=== PATIENT | female | born 1940 | race Caucasian/White ===

== ENCOUNTER 2016-10-24 13:20 | Inpatient (IN) | payer OTHER, MEDICARE ==
[~2016-10-24] VITALS: Ht 172.7 cm; Wt 103.9 kg
[~2016-10-24 13:20] MED LIST: ASPI81TA11 PO; ATOR10 PO; AUGM500T7 PO; CARV12.5 PO; COZA50TA PO; FURO40TA PO; LEVEMIR SQ; LISI10 PO; NOVOLOGP2 SQ
--- NOTE | 2016-10-24 13:29 | PD ---
HPI . right hip/buttocks pain s/p fall Chief Complaint: right hip/buttocks pain s/p fall Time Seen by Provider: 13:29 Travel History International Travel<30 days: No Contact w/Intl Traveler<30days: No Traveled to known affect area: No History of Present Illness HPI 75-year-old female with past medical history significant for hypertension, hyperlipidemia, CHF and diabetes who takes warfarin for a supposedly clotted her heart here status post fall grocery store now with complaints of right hip and buttocks pain. Patient says she was getting ready to step up a curb, instead of looking where she was walking she was looking straight ahead at her car. She lost balance and fell down to her right buttocks and hip. She tells me that her cell phone with her pocket and she thinks that may have caused her to have some muscle strain. She was afraid to get up and try to walk, because it seemed to be a little bit more painful with trying to bear weight. Paramedics were called and brought her to the emergency department for further evaluation. This present time she is telling me she has 2/10 pain in her right hip at rest, however when she tries to ambulate she says the pain intensifies to 8/10. She denies any head injury or loss of consciousness. She has no other complaints of pain. Her blood pressures elevated today, and she tells me that she did not take her medications at home. She denies any nausea, vomiting , diaphoresis, shortness breath, chest pain, or syncope. PFSH Past Medical History Heart Rhythm Problems: No Cancer: No Cardiovascular Problems: Yes High Cholesterol: Yes Chest Pain: No Congestive Heart Failure: Yes Diabetes: Yes Diminished Hearing: No Endocrine: No Genitourinary: No Hypertension: Yes Immune Disorder: No Implanted Vascular Access Dvce: No Musculoskeletal: No Neurologic: No Psychiatric: No Reproductive: No Respiratory: Yes Myocardial Infarction: Yes (NSTEMI) Menopausal: Yes Past Surgical History Cardiac Surgery: Yes (CARDIAC CATHETERIZATION) Other Surgery: No Social History Alcohol Use: No Tobacco Use: No Substance Use: No Allergies-Medications (Allergen,Severity, Reaction): Coded Allergies: No Known Allergies (Unverified , 10/24/16) Reported Meds & Prescriptions Reported Meds & Active Scripts Active Novolog (Insulin Aspart) 100 Units/Ml Inj 5 Units SQ TIDAC 30 Days Coreg 12.5 mg (Carvedilol) 12.5 Mg Tab 12.5 Mg PO Q12 30 Days Aspirin EC 81 mg (Aspirin) 81 Mg Tab 81 Mg PO DAILY 30 Days Prinivil 10 mg (Lisinopril) 10 Mg Tab 40 Mg PO DAILY 30 Days Lipitor 10 mg tab (Atorvastatin) 10 Mg Tab 10 Mg PO HS 30 Days Reported Glipizide-Metformin 2-250 Mg Tab Losartan (Losartan Potassium) 50 Mg Tab 50 Mg PO DAILY Lisinopril 40 Mg Tab 40 Mg PO DAILY Furosemide 40 Mg Tab 40 Mg PO DAILY Carvedilol 12.5 Mg Tab 12.5 Mg PO BID Atorvastatin (Atorvastatin Calcium) 10 Mg Tab 10 Mg PO HS Aspirin 81 Mg Chew 81 Mg CHEW DAILY Cozaar (Losartan Potassium) 50 Mg Tab 50 Mg PO DAILY Furosemide 40 Mg Tab 40 Mg PO DAILY Levemir Insulin (Insulin Detemir) 100 Units/Ml Inj 25 Units SQ HS Review of Systems General / Constitutional: No: Fever Eyes: No: Visual changes HENT: No: Headaches Cardiovascular: No: Chest Pain or Discomfort Respiratory: No: Shortness of Breath Gastrointestinal: No: Abdominal Pain Genitourinary: No: Dysuria Musculoskeletal: Positive: Pain (right hip pain ) Skin: No Rash Neurologic: No: Weakness Psychiatric: No: Depression Endocrine: No: Polydipsia Hematologic/Lymphatic: No: Easy Bruising Physical Exam Narrative GENERAL: AAO x 3, no acute distress, Well-nourished, well-developed patient. obese SKIN: Warm and dry. No visible rashes or bruising. no ecchymosis of hips HEAD: Normocephalic and atraumatic. EYES: No scleral icterus. No injection or drainage. EOM intact, ENT: No nasal drainage noted. Mucous membranes pink. Airway patent. NECK: Supple, trachea midline. No JVD. non tender CARDIOVASCULAR: Regular rate and rhythm without murmurs, gallops, or rubs. RESPIRATORY: Breath sounds equal bilaterally. No accessory muscle use. No rhonchi or rales. GASTROINTESTINAL: Abdomen soft, non-tender, nondistended. no rebound or guarding EXTREMITIES: No cyanosis or edema. Right leg ROM normal, but limited due to pain in the right hip. right knee flexes and extends normally. BACK: Nontender without obvious deformity. No CVA tenderness. NEURO: CN II-12 intact, polygraph examiner strength normal b/l, UE and LE 5/5, no focal deficits PSYCH: AAO x 3, normal affect. Data Data Last Documented VS Vital Signs Date Time Temp Pulse Resp B/P Pulse Ox O2 Delivery O2 Flow Rate FiO2 10/24/16 13:41 98.0 84 16 180/101 96 Room Air Orders Femur (Ap & Lat/2vws) (10/24/16 13:36) Hip, Uni(Ap&Lat) W Ap Pelvis (10/24/16 13:36) Ct Pelvis W/O Iv Contrast (10/24/16 ) Complete Blood Count With Diff (10/24/16 15:01) Basic Metabolic Panel (Bmp) (10/24/16 15:01) Prothrombin Time / Inr (Pt) (10/24/16 15:01) Act Partial Throm Time (Ptt) (10/24/16 15:01) Chest, Single Ap (10/24/16 ) Electrocardiogram (10/24/16 ) Consult Orthopedic (10/24/16 ) Npo After Midnight W/ Po Meds (10/24/16 Dinner) (Hub Use Only)Inp Phy Cons/Ref (10/24/16 ) Phytonadione Inj (Vitamin K Inj) (10/24/16 17:30) Urinalysis - C+S If Indicated (10/24/16 17:34) Admit Order (Ed Use Only) (10/24/16 17:34) Labs Laboratory Tests Test 10/24/16 15:40 White Blood Count 17.3 TH/MM3 Red Blood Count 4.14 MIL/MM3 Hemoglobin 12.6 GM/DL Hematocrit 37.9 % Mean Corpuscular Volume 91.6 FL Mean Corpuscular Hemoglobin 30.4 PG Mean Corpuscular Hemoglobin 33.2 % Concent Red Cell Distribution Width 12.6 % Platelet Count 312 TH/MM3 Mean Platelet Volume 9.1 FL Neutrophils (%) (Auto) 88.4 % Lymphocytes (%) (Auto) 4.9 % Monocytes (%) (Auto) 5.3 % Eosinophils (%) (Auto) 1.1 % Basophils (%) (Auto) 0.3 % Neutrophils # (Auto) 15.3 TH/MM3 Lymphocytes # (Auto) 0.9 TH/MM3 Monocytes # (Auto) 0.9 TH/MM3 Eosinophils # (Auto) 0.2 TH/MM3 Basophils # (Auto) 0.1 TH/MM3 CBC Comment DIFF FINAL Differential Comment Prothrombin Time 21.5 SEC Prothromb Time International 1.9 RATIO Ratio Activated Partial 34.4 SEC Thromboplast Time Sodium Level 137 MEQ/L Potassium Level 4.2 MEQ/L Chloride Level 106 MEQ/L Carbon Dioxide Level 24.5 MEQ/L Anion Gap 7 MEQ/L Blood Urea Nitrogen 35 MG/DL Creatinine 1.33 MG/DL Estimat Glomerular Filtration 39 ML/MIN Rate Random Glucose 207 MG/DL Calcium Level 10.3 MG/DL [facility] Medical Decision Making Medical Screen Exam Complete: Yes Emergency Medical Condition: Yes Medical Record Reviewed: Yes Differential Diagnosis hip contusion, hip fracture, pelvis fracture, Narrative Course 75 yr old female here s/p slipping and tripping now with right hip/buttocks pain. Xrays ordered. We will hold off with pain meds as her level is 2/10 at rest. Last Impressions Hip and Pelvis X-Ray 10/24/16 1336 Signed Impressions: Service Date/Time: Monday, October 24, 2016 14:01 - CONCLUSION: Lucency in intertrochanteric region concerning for possible fracture although confirmation of this with communication with a cortical surface is not clearly demonstrated. This area can be better characterize with CT examination. Lee Landon MD Femur X-Ray 10/24/166 Signed Impressions: Service Date/Time: Monday, October 24, 2016 14:01 - CONCLUSION: Questionable lucency in the intertrochanteric region. This area can be better evaluated for possible fracture with a CT examination. Lee Landon MD Chest X-Ray 10/24/16 0000 Signed Impressions: Service Date/Time: Monday, October 24, 2016 15:06 - CONCLUSION: 1. Mild cardiomegaly. The lungs are otherwise clear. Leo Hinojosa MD CT ordered to better visualize. Prelim CT: + fracture; patient does not have orthopedist who she follows with. Laboratory Tests Test 10/24/16 15:40 White Blood Count 17.3 TH/MM3 Red Blood Count 4.14 MIL/MM3 Hemoglobin 12.6 GM/DL Hematocrit 37.9 % Mean Corpuscular Volume 91.6 FL Mean Corpuscular Hemoglobin 30.4 PG Mean Corpuscular Hemoglobin 33.2 % Concent Red Cell Distribution Width 12.6 % Platelet Count 312 TH/MM3 Mean Platelet Volume 9.1 FL Neutrophils (%) (Auto) 88.4 % Lymphocytes (%) (Auto) 4.9 % Monocytes (%) (Auto) 5.3 % Eosinophils (%) (Auto) 1.1 % Basophils (%) (Auto) 0.3 % Neutrophils # (Auto) 15.3 TH/MM3 Lymphocytes # (Auto) 0.9 TH/MM3 Monocytes # (Auto) 0.9 TH/MM3 Eosinophils # (Auto) 0.2 TH/MM3 Basophils # (Auto) 0.1 TH/MM3 CBC Comment DIFF FINAL Differential Comment Prothrombin Time 21.5 SEC Prothromb Time International 1.9 RATIO Ratio Activated Partial 34.4 SEC Thromboplast Time Sodium Level 137 MEQ/L Potassium Level 4.2 MEQ/L Chloride Level 106 MEQ/L Carbon Dioxide Level 24.5 MEQ/L Anion Gap 7 MEQ/L Blood Urea Nitrogen 35 MG/DL Creatinine 1.33 MG/DL Estimat Glomerular Filtration 39 ML/MIN Rate Random Glucose 207 MG/DL Calcium Level 10.3 MG/DL BUN/creatinine slightly elevated, patient reports a history of chronic kidney disease. INR 1.9 and she does take Coumadin daily. 1713: Discussed case with Deuce ROB for Dr. Bae. NPO after midnight. Repair in am. Call back requested from [facility] for admission 1735: Discussed with Dr. Guillory, patient admitted for repair. UA also ordered. Admitting Information Admitting Physician Requests: Admit Condition: Stable Amada Strong Oct 24, 2016 13:29
[2016-10-24 13:41] VITALS: BP 180/101; PULSE 84; RESP 16; TEMP 98; O2SAT 96
--- NOTE | 2016-10-24 14:56 | RADRPT ---
EXAM DATE/TIME: 10/24/2016 14:01 [facility] COMPARISON: FEMUR RIGHT (AP & LAT/2VWS), October 24, 2016, 14:01. INDICATIONS : Fell today on the curb. MEDICAL HISTORY : None. SURGICAL HISTORY : None. ENCOUNTER: Initial ACUITY: 1 day PAIN SCORE: 2/10 LOCATION: Right hip and pelvis FINDINGS: Examination of the right hip was performed with AP Pelvis. There is some lucency seen in the intertr ochanteric region on the right side. This raises the possibility for fracture although communication with a cortical surface is not clearly seen to confirm a fracture. The joint is normally aligned. Vas cular calcifications are seen. CONCLUSION: Lucency in intertrochanteric region concerning for possible fracture although confirmation of this wi th communication with a cortical surface is not clearly demonstrated. This area can be better charact erize with CT examination. Lee Landon MD on October 24, 2016 at 14:49 Board Certified Radiologist. This report was verified electronically.
--- NOTE | 2016-10-24 15:17 | RADRPT ---
EXAM DATE/TIME: 10/24/2016 14:01 [facility] COMPARISON: No previous studies available for comparison. INDICATIONS : Fell today on a curb MEDICAL HISTORY : None. SURGICAL HISTORY : None. ENCOUNTER: Initial ACUITY: 1 day PAIN SCORE: 2/10 LOCATION: Right femur FINDINGS: There is lucency seen in the right intertrochanteric region raising the possibility of fracture altho ugh communication with the cortical surface is not seen to confirm a fracture. The hip joint is thuan lly aligned. The remaining aspect of the femur appears intact. Vascular calcifications are present. CONCLUSION: Questionable lucency in the intertrochanteric region. This area can be better evaluated for possible fracture with a CT examination. Lee Landon MD on October 24, 2016 at 15:13 Board Certified Radiologist. This report was verified electronically.
[2016-10-24 16:03] LABS: AUTOMATED NEUTROPHIL # 15.3 TH/MM3 (1.8-7.7); BASOPHIL # 0.1 TH/MM3 (0-0.2); BASOPHIL % 0.3 % (0.0-2.0); EOSINOPHIL # 0.2 TH/MM3 (0-0.4); EOSINOPHIL % 1.1 % (0.0-4.0); HEMATOCRIT 37.9 % (35.0-46.0); HEMO FLAGS DIFF FINAL; LYMPH % 4.9 % (9.0-44.0); LYMPHOCYTE # 0.9 TH/MM3 (1.0-4.8); MEAN CELL VOLUME 91.6 FL (80.0-100.0); MEAN CORPUSCULAR HEMOGLOBIN 30.4 PG (27.0-34.0); MEAN CORPUSCULAR HGB CONC 33.2 % (32.0-36.0); MONO % 5.3 % (0.0-8.0); NEUT % 88.4 % (16.0-70.0); PLATELET COUNT 312 TH/MM3 (150-450); RED BLOOD COUNT 4.14 MIL/MM3 (4.00-5.30); RED CELL DISTRIBUTION WIDTH 12.6 % (11.6-17.2); WHITE BLOOD COUNT 17.3 TH/MM3 (4.0-11.0)
--- NOTE | 2016-10-24 16:06 | RADRPT ---
EXAM DATE/TIME: 10/24/2016 15:06 [facility] COMPARISON: FEMUR RIGHT (AP & LAT/2VWS), October 24, 2016, 14:01. INDICATIONS : Short of breath. MEDICAL HISTORY : Congestive heart failure. SURGICAL HISTORY : None. ENCOUNTER: Initial ACUITY: 1 day PAIN SCORE: 0/10 LOCATION: Bilateral chest FINDINGS: The heart is mildly enlarged. There are chronic interstitial changes. The lungs are otherwise clear. The visualized bony structures are grossly intact. CONCLUSION: 1. Mild cardiomegaly. The lungs are otherwise clear. Leo Hinojosa MD on October 24, 2016 at 16:05 Board Certified Radiologist. This report was verified electronically.
[2016-10-24 16:21] LABS: APTT (PATIENT) 34.4 SEC (24.3-30.1); INTERNATIONAL NORMALIZED RATIO 1.9 RATIO; PROTHROMBIN TIME - PATIENT 21.5 SEC (9.8-11.6)
[2016-10-24 16:23] LABS: BICARBONATE 24.5 MEQ/L (21.0-32.0)
[2016-10-24 16:25] LABS: POTASSIUM 4.2 MEQ/L (3.5-5.1)
--- NOTE | 2016-10-24 16:43 | RADRPT ---
EXAM DATE/TIME: 10/24/2016 16:04 [facility] COMPARISON: HIP RIGHT (AP&LAT 2/3VWS) W AP PELVIS, October 24, 2016, 14:01. INDICATIONS : Fell and landed on right hip. Right hip pain. ORAL CONTRAST: No oral contrast ingested. RADIATION DOSE: 17.07 CTDIvol (mGy) MEDICAL HISTORY : Hypertension. Diabetes SURGICAL HISTORY : None. ENCOUNTER: Initial ACUITY: 1 day PAIN SCALE: 4/10 LOCATION: Right hip TECHNIQUE: Volumetric scanning of the pelvis was performed. Using automated exposure control and adjustment of the mA and/or kV according to patient size, radiation dose was kept as low as reasonably achievable t o obtain optimal diagnostic quality images. DICOM format image data is available electronically for review and comparison. FINDINGS: Problem specific findings: The examination demonstrates a nondisplaced intratrochanteric fracture of the right hip. The femoral head remains well situated within the acetabular fossa. CT source data: The soft tissues of the pelvis are intact. There is some induration in the inferior abdominal wall an teriorly. No iliac or inguinal adenopathy is seen. CONCLUSION: 1. Nondisplaced intratrochanteric hip fracture on the right. Leo Hinojosa MD on October 24, 2016 at 16:40 Board Certified Radiologist. This report was verified electronically.
[2016-10-24] MEDS ORDERED: PHYTONADIONE 10 MG/ML VIAL SQ ONE (17:30)
[2016-10-24] MEDS ORDERED: LISI40TA PO (17:35)
[2016-10-24] MEDS ORDERED: GLIP2.5T (17:35)
[2016-10-24] MEDS ORDERED: ASPI81CH CHEW (17:35)
[2016-10-24] MEDS ORDERED: FURO40TA PO (17:35)
[2016-10-24] MEDS ORDERED: LOSA50TA PO (17:35)
[2016-10-24] MEDS ORDERED: CARV12.52 PO (17:35)
[2016-10-24] MEDS ORDERED: ATOR10TA15 PO (17:35)
[2016-10-24] MEDS ORDERED: oxyCODONE/ACETAMINOPHEN 5 MG/325 MG TAB PO PRN (18:30)
[2016-10-24] MEDS ORDERED: SENNOSIDES 8.6 MG TAB PO PRN (18:30)
[2016-10-24] MEDS ORDERED: PROCHLORPERAZINE 25 MG SUPP RECTAL PRN (18:30)
[2016-10-24] MEDS ORDERED: SODIUM CHLORIDE 0.9% FLUSH 10 ML FLUSH IV FLUSH PRN (18:30)
[2016-10-24] MEDS ORDERED: oxyCODONE/ACETAMINOPHEN 10 MG/325 MG TAB PO PRN (18:30)
[2016-10-24] MEDS ORDERED: MORPHINE SULFATE 4 MG/ML INJ IV PRN ×3 (18:30)
[2016-10-24] MEDS ORDERED: ACETAMINOPHEN 325 MG TAB PO PRN ×2 (18:30)
[2016-10-24] MEDS ORDERED: BISACODYL 10 MG SUPP RECTAL PRN (18:30)
[2016-10-24] MEDS ORDERED: MAGNESIUM HYDROXIDE SUSP 30 ML CUP PO PRN (18:30)
[2016-10-24] MEDS ORDERED: NALOXONE HCL 0.4 MG/ML AMP IV PRN (18:30)
[2016-10-24] MEDS ORDERED: GLUCAGON 1 MG/ML VIAL OTHER PRN (18:30)
[2016-10-24] MEDS ORDERED: ZOLPIDEM TARTRATE 5 MG TAB PO PRN (18:30)
[2016-10-24] MEDS ORDERED: ONDANSETRON HCL 4 MG/2 ML VIAL IVP PRN (18:30)
[2016-10-24] MEDS ORDERED: LACTULOSE SYRUP 20 GM/30 ML CUP PO PRN (18:30)
[2016-10-24] MEDS ORDERED: DEXTROSE 50% IN WATER 50 ML VIAL(D50) IV PRN (18:30)
[2016-10-24 18:33] VITALS: BP 193/83; PULSE 76; RESP 16; TEMP 98.1; O2SAT 98
--- NOTE | 2016-10-24 18:40 | HHI.HP ---
[facility] Suhas Scott M.D. Admission Diagnosis hip fracture Diagnoses: (1) DM (diabetes mellitus) Diagnosis: Secondary (2) Hypertension Diagnosis: Secondary (3) Coronary artery disease Diagnosis: Secondary (4) Closed intertrochanteric fracture of right femur Diagnosis: Principal (5) Hyperglycemia Diagnosis: Secondary Chief Complaint: Status post fall with right hip pain Travel History International Travel<30 Days: No Contact w/Intl Traveler <30 Da: No Traveled to Known Affected Are: No History of Present Illness 75-year-old female with past medical history significant for hypertension, hyperlipidemia, CHF and diabetes who takes warfarin for a supposedly clot IN her heart here status post fall grocery store now with complaints of right hip and buttocks pain. Patient says she was getting ready to step up a curb, instead of looking where she was walking she was looking straight ahead at her car. She lost balance and fell down to her right buttocks and hip. She tells me that her cell phone with her pocket and she thinks that may have caused her to have some muscle strain. She was afraid to get up and try to walk, because it seemed to be a little bit more painful with trying to bear weight. Paramedics were called and brought her to the emergency department for further evaluation. This present time she is telling me she has 2/10 pain in her right hip at rest, however when she tries to ambulate she says the pain intensifies to 8/10. She denies any head injury or loss of consciousness. She has no other complaints of pain. Her blood pressures elevated today, and she tells me that she did not take her medications at home. She denies any nausea, vomiting , diaphoresis, shortness breath, chest pain, or syncope. Review of Systems Constitutional: DENIES: Diaphoretic episodes, Fatigue, Fever, Weight gain, Weight loss, Chills Eyes: DENIES: Blurred vision, Diplopia, Eye inflammation Ears, nose, mouth, throat: DENIES: Tinnitus, Hearing loss, Vertigo Respiratory: DENIES: Apneas, Cough, Snoring, Wheezing, Hemoptysis Cardiovascular: DENIES: Chest pain, Palpitations, Syncope Gastrointestinal: DENIES: Abdominal pain, Black stools, Bloody stools Musculoskeletal: COMPLAINS OF: Joint pain, DENIES: Muscle aches, Stiffness, Joint Swelling Integumentary: DENIES: Abnormal pigmentation, Pruritus, Rash Hematologic/lymphatic: DENIES: Bruising, Lymphadenopathy Immunologic/allergic: DENIES: Eczema Neurologic: DENIES: Abnormal gait, Headache, Localized weakness, Paresthesias, Seizures, Speech Problems Psychiatric: DENIES: Anxiety, Confusion, Mood changes, Depression, Hallucinations, Agitation Past Family Social History Past Medical History CHF Hypertension Non-ST elevation MD Chronic clot in her heart on chronic Coumadin Hyperlipidemia Diabetes history cholecystectomy Heart Rhythm Problems: No Cancer: No Cardiovascular Problems: Yes High Cholesterol: Yes Chest Pain: No Congestive Heart Failure: Yes Diabetes: Yes Diminished Hearing: No Endocrine: No Genitourinary: No Hypertension: Yes Immune Disorder: No Implanted Vascular Access Dvce: No Musculoskeletal: No Neurologic: No Psychiatric: No Reproductive: No Respiratory: Yes Myocardial Infarction: Yes (NSTEMI) Menopausal: Yes Past Surgical History History of cholecystectomy Reported Medications Reported Meds & Active Scripts Active Novolog (Insulin Aspart) 100 Units/Ml Inj 5 Units SQ TIDAC 30 Days Coreg 12.5 mg (Carvedilol) 12.5 Mg Tab 12.5 Mg PO Q12 30 Days Aspirin EC 81 mg (Aspirin) 81 Mg Tab 81 Mg PO DAILY 30 Days Prinivil 10 mg (Lisinopril) 10 Mg Tab 40 Mg PO DAILY 30 Days Lipitor 10 mg tab (Atorvastatin) 10 Mg Tab 10 Mg PO HS 30 Days Reported Glipizide-Metformin 2-250 Mg Tab Losartan (Losartan Potassium) 50 Mg Tab 50 Mg PO DAILY Lisinopril 40 Mg Tab 40 Mg PO DAILY Furosemide 40 Mg Tab 40 Mg PO DAILY Carvedilol 12.5 Mg Tab 12.5 Mg PO BID Atorvastatin (Atorvastatin Calcium) 10 Mg Tab 10 Mg PO HS Aspirin 81 Mg Chew 81 Mg CHEW DAILY Cozaar (Losartan Potassium) 50 Mg Tab 50 Mg PO DAILY Furosemide 40 Mg Tab 40 Mg PO DAILY Levemir Insulin (Insulin Detemir) 100 Units/Ml Inj 25 Units SQ HS Allergies: Coded Allergies: No Known Allergies (Unverified , 10/24/16) Active Ordered Medications Active Medications Phytonadione (Vitamin K Inj) 10 mg ONCE ONCE SQ Last administered on 10/24/16 17:40; Start 10/24/16 at 17:30; Stop 10/24/16 at 17:31; Status DC Current Medications Phytonadione (Vitamin K Inj) 10 mg ONCE ONCE SQ Last administered on 17:40; Start 10/24/16 at 17:30; Stop 10/24/16 at 17:31; Status DC Novolog (Insulin Aspart) 100 Units/Ml Inj 5 Units SQ TIDAC 30 Days Coreg 12.5 mg (Carvedilol) 12.5 Mg Tab 12.5 Mg PO Q12 30 Days Aspirin EC 81 mg (Aspirin) 81 Mg Tab 81 Mg PO DAILY 30 Days Prinivil 10 mg (Lisinopril) 10 Mg Tab 40 Mg PO DAILY 30 Days Lipitor 10 mg tab (Atorvastatin) 10 Mg Tab 10 Mg PO HS 30 Days Reported Glipizide-Metformin 2-250 Mg Tab Losartan (Losartan Potassium) 50 Mg Tab 50 Mg PO DAILY Lisinopril 40 Mg Tab 40 Mg PO DAILY Furosemide 40 Mg Tab 40 Mg PO DAILY Carvedilol 12.5 Mg Tab 12.5 Mg PO BID Atorvastatin (Atorvastatin Calcium) 10 Mg Tab 10 Mg PO HS Aspirin 81 Mg Chew 81 Mg CHEW DAILY Cozaar (Losartan Potassium) 50 Mg Tab 50 Mg PO DAILY Furosemide 40 Mg Tab 40 Mg PO DAILY Levemir Insulin (Insulin Detemir) 100 Units/Ml Inj 25 Units SQ HS Family History Hypertension diabetes Social History Denies any tobacco or alcohol at this time Physical Exam Vital Signs Vital Signs Date Time Temp Pulse Resp B/P Pulse Ox O2 Delivery O2 Flow Rate FiO2 10/24/16 13:41 98.0 84 16 180/101 96 Room Air Physical Exam GENERAL: This is a well-nourished, well-developed patient, in no apparent distress. No pain unless trying to move the right leg SKIN: No rashes, ecchymoses or lesions. Cool and dry. HEAD: Atraumatic. Normocephalic. No temporal or scalp tenderness. EYES: Pupils equal round and reactive. Extraocular motions intact. No scleral icterus. No injection or drainage. ENT: Nose without bleeding, purulent drainage or septal hematoma. Throat without erythema, tonsillar hypertrophy or exudate. Uvula midline. Airway patent. Tongue is midline NECK: Trachea midline. No JVD or lymphadenopathy. Supple, nontender, no meningeal signs. CARDIOVASCULAR: Regular rate and rhythm without murmurs, gallops, or rubs. S1 and S2 no S3 or S4 no heave or thrill or rub or gallop RESPIRATORY: Clear to auscultation. Breath sounds equal bilaterally. No wheezes , rales, or rhonchi. GASTROINTESTINAL: Abdomen soft, non-tender, nondistended. No hepato-splenomegaly , or palpable masses. No guarding. Obese MUSCULOSKELETAL: Extremities without clubbing, cyanosis, or edema. No joint tenderness, effusion, or edema noted. No calf tenderness. Negative Homans sign bilaterally. Right hip tender on some attempted rotation and movement of NEUROLOGICAL: Awake and alert. Cranial nerves II through XII intact. Motor and sensory grossly within normal limits. Five out of 5 muscle strength in all muscle groups. Normal speech. Insight and judgment are good mood and behavior are appropriate Laboratory Laboratory Tests Test 10/24/16 15:40 White Blood Count 17.3 Red Blood Count 4.14 Hemoglobin 12.6 Hematocrit 37.9 Mean Corpuscular Volume 91.6 Mean Corpuscular Hemoglobin 30.4 Mean Corpuscular Hemoglobin 33.2 Concent Red Cell Distribution Width 12.6 Platelet Count 312 Mean Platelet Volume 9.1 Neutrophils (%) (Auto) 88.4 Lymphocytes (%) (Auto) 4.9 Monocytes (%) (Auto) 5.3 Eosinophils (%) (Auto) 1.1 Basophils (%) (Auto) 0.3 Neutrophils # (Auto) 15.3 Lymphocytes # (Auto) 0.9 Monocytes # (Auto) 0.9 Eosinophils # (Auto) 0.2 Basophils # (Auto) 0.1 CBC Comment DIFF FINAL Differential Comment Prothrombin Time 21.5 Prothromb Time International 1.9 Ratio Activated Partial 34.4 Thromboplast Time Sodium Level 137 Potassium Level 4.2 Chloride Level 106 Carbon Dioxide Level 24.5 Anion Gap 7 Blood Urea Nitrogen 35 Creatinine 1.33 Estimat Glomerular Filtration 39 Rate Random Glucose 207 Calcium Level 10.3 Result Diagram: 10/24/16 1540 10/24/16 1540 Imaging Last Impressions Hip and Pelvis X-Ray 10/24/16 1336 Signed Impressions: Service Date/Time: Monday, October 24, 2016 14:01 - CONCLUSION: Lucency in intertrochanteric region concerning for possible fracture although confirmation of this with communication with a cortical surface is not clearly demonstrated. This area can be better characterize with CT examination. Lee Landon MD Femur X-Ray 10/24/16 1336 Signed Impressions: Service Date/Time: Monday, October 24, 2016 14:01 - CONCLUSION: Questionable lucency in the intertrochanteric region. This area can be better evaluated for possible fracture with a CT examination. Lee Landon MD Pelvis CT 10/24/16 0000 Signed Impressions: Service Date/Time: Monday, October 24, 2016 16:04 - CONCLUSION: 1. Nondisplaced intratrochanteric hip fracture on the right. Leo Hinojosa MD Chest X-Ray 10/24/16 0000 Signed Impressions: Service Date/Time: Monday, October 24, 2016 15:06 - CONCLUSION: 1. Mild cardiomegaly. The lungs are otherwise clear. Leo Hinojosa MD Assessment and Plan Problem List: (1) Closed intertrochanteric fracture of right femur ICD Code: S72.141A Status: Acute (2) DM (diabetes mellitus) ICD Code: E11.9 Status: Chronic (3) Hypertension ICD Code: I10 Status: Chronic (4) Coronary artery disease ICD Code: I25.10 Status: Acute (5) Cholecystitis ICD Code: K81.9 Status: Acute (6) Status post non-ST elevation myocardial infarction (NSTEMI) ICD Code: I25.2 Status: Resolved (7) SOB (shortness of breath) ICD Code: R06.02 Status: Acute (8) Systolic CHF ICD Code: I50.20 Status: Acute Assessment and Plan Patient is a 75-year-old female. Status post fall Status post fall with fracture to right intertrochanteric femur We'll consult Dr. Grant of orthopedics Has been given vitamin K We will check INR in the morning Nothing by mouth after midnight Pain control for right hip fracture Diabetes Accu-Cheks before meals and at bedtime Hypertension home medications Hypercholesterolemia Home medications Reverse anticoagulation with vitamin K Physician Certification 2 Midnight Certification Type: Admission for Inpatient Services Order for Inpatient Services The services are ordered in accordance with Medicare regulations or non- Medicare payer requirements, as applicable. In the case of services not specified as inpatient-only, they are appropriately provided as inpatient services in accordance with the 2-midnight benchmark. Estimated LOS (days): 4 4 days is the estimated time the patient will need to remain in the hospital, assuming treatment plan goals are met and no additional complications. Post-Hospital Plan: [facility] Deonte Guillory DO Oct 24, 2016 18:40
[2016-10-24] MEDS ORDERED: hydrALAZINE HCL 20 MG/ML VIAL IV PUSH ONE (19:30)
[2016-10-24] MEDS: SODIUM CHLOR 0.9% 1000 ML INJ 1,000 ML IV SCH (19:33)
[2016-10-24 20:22] VITALS: BP 166/79; PULSE 66; RESP 14; O2SAT 98
[2016-10-24 21:30] VITALS: BP 194/83; PULSE 80; RESP 16; TEMP 99.4; O2SAT 99
[2016-10-24 22:00] VITALS: BP 194/83; PULSE 80; RESP 16; TEMP 99.4; O2SAT 99
[2016-10-24] MEDS: INSULIN DETEMIR 100 UNITS/ML VIAL SQ SCH (22:09)
[2016-10-24] MEDS: DOCUSATE SODIUM 50 MG/SENNA 8.6 MG TAB PO SCH (22:09)
[2016-10-24] MEDS: SODIUM CHLORIDE 0.9% FLUSH 10 ML FLUSH IV FLUSH SCH (22:09)
[2016-10-24] MEDS: CARVEDILOL 12.5 MG TAB PO SCH (22:09)
[2016-10-24] MEDS: ATORVASTATIN 10 MG TAB PO SCH (22:09)
[2016-10-24] MEDS: INSULIN ASPART SUPPLEMENTAL SCALE SQ SCH (22:14)
[2016-10-24] MEDS ORDERED: IBUPROFEN 800 MG TAB PO ONE (23:30)
[2016-10-25] VITALS (7 sets, daily range): BP systolic 109–159; BP diastolic 57–73; PULSE 61–74; RESP 17–19; TEMP 95.8–99.1; O2SAT 94–98
[2016-10-25 00:02] LABS: BACTERIA, URINE MOD /hpf; BLOOD, URINE TRACE (NEG); COMMENT (UR) CULTURE INDICATED; CULTURE IF INDICATED CULTURE INDICATED; GLUCOSE,URINE NEG (NEG); KETONE, URINE NEG (NEG); NITRITE,URINE NEG (NEG); PH, URINE 5.5 (5.0-8.5); SQUAMOUS EPITHELIAL CELL URINE 1 /hpf (0-5); URINE COLOR YELLOW (YELLW/STRAW)
--- NOTE | 2016-10-25 00:15 | EKG ---
Date Performed: 10/24/2016 Time Performed: 21:49:43 PTAGE: 75 years EKG: Sinus rhythm MODERATE INTRAVENTRICULAR CONDUCTION DELAY BORDERLINE ECG PREVIOUS TRACING : 10/24/2016 15.49 Compared to prior tracing no significant change DOCTOR: Christian Boggs Interpretating Date/Time 10/25/2016 00:14:08
--- NOTE | 2016-10-25 00:36 | EKG ---
Date Performed: 10/24/2016 Time Performed: 15:49:24 PTAGE: 75 years EKG: Sinus rhythm WITH SINUS ARRHYTHMIA MODERATE INTRAVENTRICULAR CONDUCTION DELAY BORDERLINE ECG PREVIOUS TRACING : 07/30/2015 09.12 Compared to prior tracing no significant change DOCTOR: Christina Boggs Interpretating Date/Time 10/25/2016 00:35:21
[2016-10-25] MEDS: SODIUM CHLOR 0.9% 1000 ML INJ 1,000 ML IV SCH ×3 (04:18→23:10)
[2016-10-25] MEDS: INSULIN ASPART SUPPLEMENTAL SCALE SQ SCH ×4 (06:01→20:14)
[2016-10-25] MEDS ORDERED: ACETAMINOPHEN 1000 MG/100 ML VIAL IV ONE (07:09)
[2016-10-25] MEDS ORDERED: FAMOTIDINE 20 MG/2 ML VIAL ONE (07:09)
[2016-10-25] MEDS ORDERED: MIDAZOLAM HCL 2 MG/2 ML VIAL ONE (07:09)
[2016-10-25] MEDS ORDERED: fentaNYL CITRATE 250 MCG/5 ML AMP ONE (07:09)
[2016-10-25] MEDS ORDERED: VANCOMYCIN HCL 1000 MG VIAL ONE (07:22)
[2016-10-25] MEDS ORDERED: ceFAZolin 2 GM PREMIX 50 ML ONE (07:22)
[2016-10-25] MEDS ORDERED: GENTAMICIN SULFATE 80 MG/2 ML VIAL ONE (07:23)
[2016-10-25] MEDS ORDERED: SODIUM CHLOR 0.9% 250 ML INJ 250 ML ONE (07:23)
[2016-10-25] MEDS ORDERED: BUPIVACAINE/EPINEPHRINE 0.25% 50 ML VIAL ONE (07:23)
[2016-10-25] MEDS: INSULIN ASPART 1,000 UNITS/10 ML VIAL SQ SCH ×3 (08:00→17:55)
[2016-10-25] MEDS ORDERED: MORPHINE SULFATE 4 MG/ML INJ IV PUSH PRN (08:15)
[2016-10-25] MEDS ORDERED: diphenhydrAMINE HCL 25 MG CAP PO PRN (08:15)
[2016-10-25] MEDS ORDERED: SODIUM CHLORIDE 0.9% FLUSH 5 ML FLUSH IVF PRN (08:15)
--- NOTE | 2016-10-25 08:15 | PD.OP ---
cc: Geoffrey Grant MD Operative Report Date of Surgery: Oct 25, 2016 Preoperative Diagnosis: Right hip intertrochanteric fracture Postoperative Diagnosis: Procedure: Right hip reduction and intramedullary nail fixation Anesthesia: Gen. Surgeon: Geoffrey Grant Ict Development Manager(s): LIANE Braga PA-C The surgical procedure was assisted by my physician language assistant. My P.A. presence was necessary throughout this case for the manipulation and positioning of the surgical extremity. My P.A. was assisting me throughout the duration of this procedure. The skill set of a physician language assistant was medically necessary to complete this procedure. During the surgical case the surgical lead was working at the back table and the physician language assistant was directly assisting me. Operation and Findings: Implants used: [11]mm 125 Synthes TFNA short troch nail Plan of activity: 50% weightbearing 3 weeks, then weight-bear as tolerated Patient was seen and evaluated preoperatively. The patient has significant hip pain from intertrochanteric hip fracture. The risk and benefits of surgery were discussed in depth with the patient to include bleeding infection nonunion malunion and need for hip replacement painful hardware as well as medical competitions including but not stroke heart attack and . Informed consent was obtained. Operative site was marked. Patient was brought to the operating room and placed on fracture table. IV sedation was administered by anesthesiologist. Timeout procedure was performed. Hip and leg were prepped with alcohol followed by DuraPrep and draped in the usual sterile fashion. IV antibiotics were given prior to incision. Procedure began with reduction of fracture. Traction was applied. The leg was manipulated to achieve reduction. Excellent reduction was achieved. Fluoroscopy was used to confirm reduction. A three inch incision was made proximal to the trochanter. Subcutaneous tissue was dissected bluntly. Guidepin was placed at the tip of the trochanter and advanced into the femoral canal. Fluoroscopy confirmed appropriate guidepin placement. A opening reamer was placed over the guidepin. The Synthes TFNA nail was attached to the insertion handle. Nail was now placed through the tip of the trochanter into the femoral canal. Fluoroscopy confirmed appropriate nail placement. A second incision was made over the lateral thigh. Cannulas were placed through the insertion handle down to the femur. Guidepin was now placed through the femoral nail into the center of the femoral head. Fluoroscopy confirmed appropriate guidepin placement. Screw length was measured. Cannulated drill was placed over the guidepin. Appropriate length lag screw was now placed. Traction was released and compression was applied. The set screw was now tightened in dynamic mode. Using the insertion handle as a guide a distal interlocking screw was drilled and placed. Final fluoroscopy revealed well aligned fracture with well-placed hardware. Incision was closed with 3-0 Vicryl and eliana. Sterile dressings were applied. Patient was awakened and transferred to recovery room. Geoffrey Grant MD Oct 25, 2016 08:15
[2016-10-25] MEDS ORDERED: HYDR-3288 PO (08:17)
[2016-10-25] MEDS ORDERED: DO NOT ADM ANY ANTICOAGULANT DRUGS PRN (08:33)
--- NOTE | 2016-10-25 08:37 | MB ---
cc: ISELA GUZMÁN,PALOMO DATE OF CONSULTATION: 10/25/2016 REASON FOR CONSULTATION Right hip intertrochanteric fracture. CONSULTING PHYSICIAN Dr. Palomo Guillory HISTORY OF PRESENT ILLNESS Mariela is a 75-year-old female who has multiple medical problems including hypertension, CHF and diabetes. She also takes Coumadin. She states that she had a fall. She landed on her right side. She had immediate right hip pain. She did not see a curb when she stepped off and fell. She had immediate right hip pain. She was unable to stand or ambulate. She presented to the emergency room where x-rays revealed a right hip intertrochanteric fracture. She is currently awake and alert on the orthopedic floor. Her only complaint is her right hip. She did not have any dizziness, syncope or loss of consciousness. PAST MEDICAL HISTORY ILLNESSES 1. CHF. 2. Hypertension. 3. History of [place]. 4. High cholesterol. 5. Diabetes. SURGERIES Cholecystectomy. MEDICATIONS 1. Insulin. 2. Coreg. 3. Aspirin. 4. Lipitor. 5. Glipizide. 6. Metformin. 7. Losartan. 8. Lisinopril. 9. Lasix. 10.Carvedilol. 11.Coumadin. 12.Aspirin. 13.Cozaar. 14.Levemir. ALLERGIES No known drug allergies. FAMILY HISTORY Positive for hypertension and diabetes. SOCIAL HISTORY The patient denies alcohol, tobacco or drug use. REVIEW OF SYSTEMS The patient denies headache, visual changes, neck pain, chest pain, shortness of breath, abdominal pain, nausea, vomiting or recent weight loss. She complains of right hip pain. Pain is worse with movement. PHYSICAL EXAMINATION GENERAL: The patient is a pleasant 75-year-old female in no acute distress. She is awake and alert. She is alert and oriented x3. VITAL SIGNS: Temperature 96.7, pulse 67, respirations 17, blood pressure 138/73. O2 sat is 97% on room air. HEAD: The patient is normocephalic. Pupils are equal. NECK: Soft, nontender. Trachea is midline. ABDOMEN: Soft, nontender, nondistended. EXTREMITIES: Examination of bilateral upper extremities reveals no pain with shoulder, elbow or wrist motion. She has intact sensation in all fingers. She has good capillary refill in all fingers. Skin is intact. Tier Over strength is +5. Radial pulses are palpable. Examination of left leg reveals no pain with hip, knee or ankle motion. Skin is intact. Dorsalis pedis pulse is palpable. Sensation is intact. Examination of right leg reveals pain with any hip motion. She has no tenderness around her knee, tibia or ankle. Skin is intact. Dorsalis pedis pulse is palpable. X-RAYS X-rays and CT scan were reviewed. The patient has a mildly displaced right hip intertrochanteric fracture. IMPRESSION 1. Diabetes. 2. Hypertension. 3. Chronic Coumadin use. 4. Postmenopausal osteoporosis. 5. Right hip intertrochanteric fracture. PLAN The treatment options were discussed with the patient. At this point I would recommend right hip reduction, intramedullary nail fixation. The risks of surgery include bleeding, infection, injuries to arteries, nerves and blood vessels, nonunion, malunion, painful hardware, trochanteric bursitis, as well as medical complications including blood clot, stroke, heart attack and . All questions were answered. I will plan on surgery today. MD HARLEY Mason/JAYSON /8:19 AM /8:26 AM
[2016-10-25] MEDS ORDERED: *morphine SULFATE 8 MG/ML PERIprocedure ONLY ONE (08:58)
[2016-10-25] MEDS ORDERED: FUROSEMIDE 40 MG TAB PO SCH (09:00)
[2016-10-25] MEDS: SODIUM CHLORIDE 0.9% FLUSH 5 ML FLUSH IVF SCH ×2 (09:00→21:00)
[2016-10-25 09:22] LABS: INTERNATIONAL NORMALIZED RATIO 1.6 RATIO; PROTHROMBIN TIME - PATIENT 17.8 SEC (9.8-11.6)
--- NOTE | 2016-10-25 09:23 | RADRPT ---
EXAM DATE/TIME: 10/25/2016 07:43 [facility] COMPARISON: HIP RIGHT (AP&LAT 2/3VWS) W AP PELVIS, October 24, 2016, 14:01. INDICATIONS : Right troch nail. MEDICAL HISTORY : Myocardial infarction. Congestive heart failure. Hypercholesterolemia. Hypertension. Diabetes. SURGICAL HISTORY : None. ENCOUNTER: Subsequent ACUITY: 1 day PAIN SCORE: Non-responsive. LOCATION: Right hip. FINDINGS: Multiple coned down views of the right hip were obtained using a matrix camera demonstrate that the p atient is status post open rigid internal fixation with intramedullary rcistobal and locking cannulated scr ew. This transfixes the intertrochanteric fracture. The fracture fragments are in anatomic alignment. CONCLUSION: That is post open rigid internal fixation. Yao Luis MD on October 25, 2016 at 9:20 Board Certified Radiologist. This report was verified electronically.
[2016-10-25 09:26] LABS: AUTOMATED NEUTROPHIL # 13.3 TH/MM3 (1.8-7.7); BASOPHIL # 0.3 TH/MM3 (0-0.2); BASOPHIL % 1.8 % (0.0-2.0); EOSINOPHIL # 0.5 TH/MM3 (0-0.4); EOSINOPHIL % 2.9 % (0.0-4.0); HEMATOCRIT 33.1 % (35.0-46.0); LYMPH % 6.9 % (9.0-44.0); LYMPHOCYTE # 1.1 TH/MM3 (1.0-4.8); MEAN CORPUSCULAR HEMOGLOBIN 30.8 PG (27.0-34.0); MEAN CORPUSCULAR HGB CONC 33.9 % (32.0-36.0); MONO % 6.9 % (0.0-8.0); NEUT % 81.5 % (16.0-70.0); PLATELET COUNT 247 TH/MM3 (150-450); RED BLOOD COUNT 3.64 MIL/MM3 (4.00-5.30); RED CELL DISTRIBUTION WIDTH 12.5 % (11.6-17.2); WHITE BLOOD COUNT 16.4 TH/MM3 (4.0-11.0)
[2016-10-25 09:29] LABS: HEMO FLAGS AUTO DIFF
[2016-10-25] MEDS ORDERED: ERGOCALCIFEROL (VIT D2) 50,000 UNIT CAP PO ONE (10:00)
[2016-10-25 10:18] LABS: BANDS 3 % (0-6); BASOPHILS 1 % (0-2); EOSINOPHILS 2 % (0-4); METAMYELOCYTES 1 % (0-1); NEUTROPHIL # MANUAL DIFF 13.8 TH/MM3 (1.8-7.7); POLYS (SEG NEUTROPHILS) 80 % (16-70); WBC DIFF SAMPLE 100
[2016-10-25 10:19] LABS: PLATELET ESTIMATE SMEAR NORMAL (NORMAL); PLATELET MORPHOLOGY NORMAL (NORMAL); SCAN/DIFF FINAL DIFF MANUAL
[2016-10-25] MEDS: LISINOPRIL 20 MG TAB PO SCH (10:58)
[2016-10-25] MEDS: LOSARTAN 50 MG TAB PO SCH (10:58)
[2016-10-25] MEDS: CARVEDILOL 12.5 MG TAB PO SCH ×2 (10:59→20:14)
[2016-10-25] MEDS: CHOLECALCIFEROL (VIT D3) 5000 UNIT CAP PO SCH (10:59)
[2016-10-25] MEDS: DOCUSATE SODIUM 50 MG/SENNA 8.6 MG TAB PO SCH ×2 (11:00→20:14)
[2016-10-25] MEDS: SODIUM CHLORIDE 0.9% FLUSH 10 ML FLUSH IV FLUSH SCH ×2 (11:01→20:14)
[2016-10-25] MEDS: CALCIUM/VITAMIN D 250 MG/125 U TAB PO SCH ×3 (11:06→17:53)
[2016-10-25] MEDS ORDERED: ePHEDrine/NS 25 MG/5 ML SYR IV ONE (12:00)
[2016-10-25] MEDS ORDERED: PROPOFOL 200 MG/20 ML AMP IV ONE (12:00)
[2016-10-25] MEDS ORDERED: ONDANSETRON HCL 4 MG/2 ML VIAL IV PUSH ONE (12:00)
--- NOTE | 2016-10-25 12:05 | HHI.PR ---
Subjective Remarks Follow-up right hip fracture. Tolerated surgery complaining of minimal pain. Discussed with RN, med rec reviewed Objective Vitals Vital Signs Date Time Temp Pulse Resp B/P Pulse Ox O2 Delivery O2 Flow Rate FiO2 10/25/16 11:30 95.8 66 19 135/65 94 10/25/16 10:00 62 16 135/62 96 Room Air 10/25/16 09:30 58 16 131/64 95 Room Air 10/25/16 09:15 58 16 143/69 95 Room Air 10/25/16 09:00 58 16 137/62 99 10/25/16 08:45 97.7 62 16 151/67 98 Nasal Cannula 2 10/25/16 08:35 64 16 149/68 98 Nasal Cannula 2 10/25/16 04:05 96.7 67 17 138/73 97 10/25/16 00:05 99.1 71 17 159/65 97 10/24/16 22:00 99.4 80 16 194/83 99 10/24/16 20:22 66 14 166/79 98 Room Air 10/24/16 19:46 21 10/24/16 18:49 21 10/24/16 18:33 98.1 76 16 193/83 98 Room Air 10/24/16 13:41 98.0 84 16 180/101 96 Room Air I/O 10/24/16 10/24/16 10/24/16 10/25/16 10/25/16 10/25/16 07:00 15:00 23:00 07:00 15:00 23:00 Intake Total 0 ml 300 ml Output Total 50 ml Balance 0 ml 250 ml Intake Oral 0 ml IV Total 300 ml Output Urine Total 50 ml # Voids 6 # Bowel Movements 0 Result Diagram: 10/25/16 0850 10/24/16 1540 Imaging Last Impressions Hip X-Ray 10/25/16 0000 Signed Impressions: Service Date/Time: Tuesday, October 25, 2016 07:43 - CONCLUSION: That is post open rigid internal fixation. Yao Luis MD Hip and Pelvis X-Ray 10/24/16 1336 Signed Impressions: Service Date/Time: Monday, October 24, 2016 14:01 - CONCLUSION: Lucency in intertrochanteric region concerning for possible fracture although confirmation of this with communication with a cortical surface is not clearly demonstrated. This area can be better characterize with CT examination. Lee Landon MD Femur X-Ray 10/24/16 1336 Signed Impressions: Service Date/Time: Monday, October 24, 2016 14:01 - CONCLUSION: Questionable lucency in the intertrochanteric region. This area can be better evaluated for possible fracture with a CT examination. Lee Landon MD Pelvis CT 10/24/16 0000 Signed Impressions: Service Date/Time: Monday, October 24, 2016 16:04 - CONCLUSION: 1. Nondisplaced intratrochanteric hip fracture on the right. Leo Hinojosa MD Chest X-Ray 10/24/16 0000 Signed Impressions: Service Date/Time: Monday, October 24, 2016 15:06 - CONCLUSION: 1. Mild cardiomegaly. The lungs are otherwise clear. Leo Hinojosa MD Objective Remarks GENERAL: Well-developed, well-nourished in no distress SKIN: Warm and dry. CARDIOVASCULAR: Regular rate and rhythm. RESPIRATORY: No accessory muscle use. Clear to auscultation. Breath sounds equal bilaterally. GASTROINTESTINAL: Abdomen soft, non-tender, nondistended. MUSCULOSKELETAL: Extremities without clubbing, cyanosis, or edema. No obvious deformities. NEUROLOGICAL: Awake and alert. No obvious cranial nerve deficits. Motor grossly within normal limits. Five out of 5 muscle strength in the arms and legs. Normal speech. Procedures Right hip reduction and intramedullary nail fixation A/P Problem List: (1) Closed intertrochanteric fracture of right femur ICD Code: S72.141A Status: Acute (2) DM (diabetes mellitus) ICD Code: E11.9 Status: Chronic (3) Hypertension ICD Code: I10 Status: Chronic (4) Coronary artery disease ICD Code: I25.10 Status: Chronic (5) Systolic CHF ICD Code: I50.20 Status: Chronic Assessment and Plan Right hip fracture status post fall. Tolerated Right hip reduction and intramedullary nail fixation. Stable continue postoperative care with wound care, physical therapy, incentive spirometry and pain management with Lortab and IV morphine Leukocytosis likely reactive Chronic kidney disease stage III. Creatinine slightly up. Check CK Abnormal urinalysis. No UTI symptoms. Follow urine culture. Discontinue Watkins catheter Diabetes mellitus. Monitor fingersticks with sliding scale coverage. Continue Levemir but will hold preprandial insulin, glipizide and metformin in the immediate postoperative period. Hyperlipidemia. Continue Lipitor Hypertension. Continue Coreg, lisinopril, losartan and Bumex with hold parameters Congestive heart failure. Continue Bumex to start today patient received 750 mL in the OR. Monitor for overload Coronary artery disease status post [place]. Continue Coreg. History of " blood clot in the heart" diagnosed in November 2016. Continue Coumadin Discharge Planning Rehabilitation when cleared by orthopedic surgery Palmer Chaney MD Oct 25, 2016 12:05
--- NOTE | 2016-10-25 12:06 | HHI.DCPOC ---
Discharge Care Plan Diagnosis: (1) Closed intertrochanteric fracture of right femur Your Health Problems Are: Difficulty with ADL Exercise Tolerance Goals to Promote Your Health * To prevent worsening of your condition and complications * To maintain your health at the optimal level Directions to Meet Your Goals Take your medications as prescribed Follow your dietary instruction Follow activity as directed Keep your appointments as scheduled Take your immunizations and boosters as scheduled If your symptoms worsen call your PCP, if no PCP go to Urgent Care Center or Emergency Room Smoking is Dangerous to Your Health. Avoid second hand smoke Call the 24-hour hour crisis hotline for domestic abuse at Palmer Chaney MD Oct 25, 2016 12:06
[2016-10-25] MEDS: ACETAMINOPHEN/HYDROcodone 325 MG/7.5 MG TAB PO PRN (14:02)
[2016-10-25] MEDS ORDERED: WARFARIN SOD 7.5 MG TAB PO ONE (18:00)
[2016-10-25 19:26] LABS: ALT (GPT) 21 U/L (10-53); ANION GAP 8 MEQ/L (5-15); AST (GOT) 23 U/L (15-37); BICARBONATE 25.7 MEQ/L (21.0-32.0); BLOOD UREA NITROGEN 36 MG/DL (7-18); CHLORIDE 106 MEQ/L (98-107); GLOMERULAR FILTRATION RATE 32 ML/MIN (>89); MAGNESIUM 1.7 MG/DL (1.5-2.5); POTASSIUM 3.9 MEQ/L (3.5-5.1); SODIUM (NA) 140 MEQ/L (136-145)
[2016-10-25 19:34] LABS: ALKALINE PHOSPHATASE 108 U/L (45-117); FREE T4 1.34 NG/DL (0.76-1.46); TOTAL BILIRUBIN ADULT 0.6 MG/DL (0.2-1.0)
[2016-10-25] MEDS: ATORVASTATIN 10 MG TAB PO SCH (20:14)
[2016-10-25] MEDS: INSULIN DETEMIR 100 UNITS/ML VIAL SQ SCH (21:00)
[2016-10-25 22:48] LABS: HEMOGLOBIN A1a 1.2 %; HEMOGLOBIN A1b 1.3 %; HEMOGLOBIN Ao 81.6 %; HEMOGLOBIN F 1.2 %; HEMOGLOBIN LA1C 2.7 %; HEMOGLOBIN P3 6.3 %
[2016-10-25] MEDS ORDERED: LACTATED RINGER'S 1000 ML IV PRN (23:30)
[2016-10-25] MEDS ORDERED: POVIDONE IODINE 5% (ANTISEPSIS KIT) 4 APPLICATIONS EACH NARE PRN (23:30)
[2016-10-25] MEDS ORDERED: CHLORHEXIDINE GLUCONATE 2 % 1 PACK (2 CLOTHS) TOPICAL PRN (23:30)
[2016-10-26] VITALS (8 sets, daily range): BP systolic 115–142; BP diastolic 56–69; PULSE 68–92; RESP 18–19; TEMP 96.4–99.8; O2SAT 93–96
[2016-10-26] MEDS: INSULIN ASPART SUPPLEMENTAL SCALE SQ SCH ×4 (05:56→22:27)
[2016-10-26 07:42] LABS: HEMATOCRIT 31.6 % (35.0-46.0); REVIEW FLAG FINAL
--- NOTE | 2016-10-26 07:48 | PD.ORT.PN ---
Subjective Subjective Remarks POD 1 s/p IMN right intertroch hip fx doing well. reports pain but controlled. out of bed with therapy yesterday Objective Vitals Vital Signs Date Time Temp Pulse Resp B/P Pulse Ox O2 Delivery O2 Flow Rate FiO2 10/26/16 04:02 96.9 92 18 142/69 95 10/26/16 00:03 98.8 81 18 142/68 96 10/25/16 20:05 97.3 74 18 150/57 96 10/25/16 17:57 97 21 10/25/16 15:56 96.3 61 19 109/59 97 10/25/16 14:19 98 10/25/16 11:30 95.8 66 19 135/65 94 10/25/16 10:00 62 16 135/62 96 Room Air 10/25/16 09:30 58 16 131/64 95 Room Air 10/25/16 09:15 58 16 143/69 95 Room Air 10/25/16 09:00 58 16 137/62 99 10/25/16 08:45 97.7 62 16 151/67 98 Nasal Cannula 2 10/25/16 08:35 64 16 149/68 98 Nasal Cannula 2 I/O 10/25/16 10/25/16 10/25/16 10/26/16 10/26/16 10/26/16 07:00 15:00 23:00 07:00 15:00 23:00 Intake Total 0 ml 600 ml 240 ml 970 ml Output Total 200 ml 500 ml 600 ml Balance 0 ml 400 ml -260 ml 370 ml Intake Oral 0 ml 300 ml 240 ml 970 ml IV Total 300 ml Output Urine Total 200 ml 500 ml 600 ml # Voids 6 # Bowel Movements 0 0 0 0 Result Diagram: 10/26/1622 10/25/16 1828 Other Results Laboratory Tests Test 10/25/16 08:50 Prothrombin Time 17.8 SEC (9.8-11.6) Prothromb Time International 1.6 RATIO Ratio Objective Remarks RLE: dressings clean and dry. intact. NVI Assessment & Plan Assessment and Plan 1) Right Intertroch Hip Fx s/p IMN - POD 1 -50%WB RLE./ plan for 50%WB x 3 weeks then progressing to WBAT -daily dressing changes -DVT prophylaxis with lovenox and DC with Xarelto -pain control with norco -CM for rehab placement -plan for DC to rehab potentially tomorrow -f/u with [facility] or [facility] in 2 weeks Deuce Humphries Oct 26, 2016 07:48
[2016-10-26 07:55] LABS: INTERNATIONAL NORMALIZED RATIO 1.2 RATIO; PROTHROMBIN TIME - PATIENT 13.4 SEC (9.8-11.6)
[2016-10-26] MEDS: SODIUM CHLORIDE 0.9% FLUSH 10 ML FLUSH IV FLUSH SCH ×2 (09:00→22:24)
[2016-10-26] MEDS: SODIUM CHLORIDE 0.9% FLUSH 5 ML FLUSH IVF SCH ×2 (09:00→21:00)
[2016-10-26] MEDS: CALCIUM/VITAMIN D 250 MG/125 U TAB PO SCH ×3 (09:04→17:36)
[2016-10-26] MEDS: DOCUSATE SODIUM 50 MG/SENNA 8.6 MG TAB PO SCH ×2 (09:07→22:25)
[2016-10-26] MEDS: CHOLECALCIFEROL (VIT D3) 5000 UNIT CAP PO SCH (09:07)
[2016-10-26] MEDS: CARVEDILOL 12.5 MG TAB PO SCH ×2 (09:07→22:25)
[2016-10-26] MEDS: LISINOPRIL 20 MG TAB PO SCH (09:07)
[2016-10-26] MEDS: LOSARTAN 50 MG TAB PO SCH (09:07)
[2016-10-26] MEDS: ACETAMINOPHEN/HYDROcodone 325 MG/7.5 MG TAB PO PRN ×2 (09:10→17:37)
[2016-10-26] MEDS: INSULIN ASPART 1,000 UNITS/10 ML VIAL SQ SCH ×2 (09:17→12:00)
[2016-10-26] MEDS: SODIUM CHLOR 0.9% 1000 ML INJ 1,000 ML IV SCH ×2 (10:10→20:20)
--- NOTE | 2016-10-26 15:33 | HHI.PR ---
Subjective Remarks Patient continues to do well physical therapy. Possible discharge tomorrow. No new complaints from the patient. Objective Vital Signs Date Time Temp Pulse Resp B/P Pulse Ox O2 Delivery O2 Flow Rate FiO2 10/26/16 14:22 95 21 10/26/16 11:37 96.4 79 19 123/66 93 10/26/16 07:54 99.8 92 19 131/62 94 10/26/16 04:02 96.9 92 18 142/69 95 10/26/16 00:03 98.8 81 18 142/68 96 10/25/16 20:05 97.3 74 18 150/57 96 10/25/16 17:57 97 21 10/25/16 15:56 96.3 61 19 109/59 97 I/O 10/25/16 10/25/16 10/25/16 10/26/16 10/26/16 10/26/16 07:00 15:00 23:00 07:00 15:00 23:00 Intake Total 0 ml 600 ml 240 ml 970 ml 650 ml Output Total 200 ml 500 ml 600 ml 350 ml Balance 0 ml 400 ml -260 ml 370 ml 300 ml Intake Oral 0 ml 300 ml 240 ml 970 ml 650 ml IV Total 300 ml Output Urine Total 200 ml 500 ml 600 ml 350 ml # Voids 6 # Bowel Movements 0 0 0 0 0 Result Diagram: 10/26/1662110/25/16 1828 Objective Remarks GENERAL: NAD, A&Ox3 HEAD: Normocephalic. NECK: Supple, trachea midline. No lymphadenopathy. EYES: No scleral icterus. No injection or drainage. CARDIOVASCULAR: Regular rate and rhythm without murmurs, gallops, or rubs. RESPIRATORY: Breath sounds equal bilaterally. No accessory muscle use. GASTROINTESTINAL: Abdomen soft, non-tender, nondistended. MUSCULOSKELETAL: No cyanosis, or edema. Bandage right hip wound. SKIN: Warm and dry. NEURO: No focal neurological deficitis. A/P Problem List: (1) Systolic CHF ICD Code: I50.20 (2) Coronary artery disease ICD Code: I25.10 (3) Status post non-ST elevation myocardial infarction (NSTEMI) ICD Code: I25.2 (4) Closed intertrochanteric fracture of right femur ICD Code: S72.141A (5) DM (diabetes mellitus) ICD Code: E11.9 (6) Hypertension ICD Code: I10 (7) Hyperglycemia ICD Code: R73.9 Assessment and Plan Assessment and Plan 75-year-old female admitted secondary to right hip fracture Right hip fracture Status post repair Orthopedics following Continue Lortab as needed Incentive spirometry Continue wound care Continue physical therapy [facility], possibly tomorrow Leukocytosis Reactive Chronic kidney disease stage III Follow renal function Diabetes mellitus type 2 Insulin sliding scale Continue diabetic diet Follow blood sugars Hyperlipidemia Continue Lipitor Hypertension Continue Coreg, lisinopril, losartan and Bumex Congestive heart failure Continue Bumex Coronary artery Hx of [place] Continue Coreg Follow clinically Hx of Mural Thrombus DVT Prophylaxis Continue Coumadin Discharge Planning Rehabilitation when cleared by orthopedic surgery Leo Danielle MD Oct 26, 2016 15:33
[2016-10-26] MEDS: WARFARIN SOD 5 MG TAB PO SCH (17:35)
[2016-10-26] MEDS: ATORVASTATIN 10 MG TAB PO SCH (22:25)
[2016-10-26] MEDS: INSULIN DETEMIR 100 UNITS/ML VIAL SQ SCH (22:25)
[2016-10-27] VITALS (7 sets, daily range): BP systolic 117–142; BP diastolic 56–68; PULSE 64–108; RESP 16–20; TEMP 97–98.5; O2SAT 94–96
[2016-10-27] MEDS: SODIUM CHLOR 0.9% 1000 ML INJ 1,000 ML IV SCH ×2 (04:38→16:20)
[2016-10-27] MEDS: ACETAMINOPHEN/HYDROcodone 325 MG/7.5 MG TAB PO PRN ×2 (05:58→19:55)
[2016-10-27] MEDS: INSULIN ASPART SUPPLEMENTAL SCALE SQ SCH ×4 (07:00→19:57)
[2016-10-27 08:02] LABS: INTERNATIONAL NORMALIZED RATIO 1.1 RATIO; PROTHROMBIN TIME - PATIENT 11.8 SEC (9.8-11.6)
[2016-10-27 08:14] LABS: HEMATOCRIT 27.6 % (35.0-46.0); MEAN CELL VOLUME 91.8 FL (80.0-100.0); MEAN CORPUSCULAR HEMOGLOBIN 31.7 PG (27.0-34.0); MEAN CORPUSCULAR HGB CONC 34.6 % (32.0-36.0); PLATELET COUNT 193 TH/MM3 (150-450); RED CELL DISTRIBUTION WIDTH 12.3 % (11.6-17.2); REVIEW FLAG FINAL
[2016-10-27 08:16] LABS: POTASSIUM 3.8 MEQ/L (3.5-5.1)
[2016-10-27] MEDS: SODIUM CHLORIDE 0.9% FLUSH 5 ML FLUSH IVF SCH ×2 (09:00→19:54)
[2016-10-27] MEDS: CHOLECALCIFEROL (VIT D3) 5000 UNIT CAP PO SCH (09:00)
[2016-10-27] MEDS: LOSARTAN 50 MG TAB PO SCH (09:29)
[2016-10-27] MEDS: CALCIUM/VITAMIN D 250 MG/125 U TAB PO SCH ×3 (09:30→18:37)
[2016-10-27] MEDS: CARVEDILOL 12.5 MG TAB PO SCH ×2 (09:30→19:55)
[2016-10-27] MEDS: DOCUSATE SODIUM 50 MG/SENNA 8.6 MG TAB PO SCH ×2 (09:30→19:54)
[2016-10-27] MEDS: LISINOPRIL 20 MG TAB PO SCH (09:30)
[2016-10-27] MEDS: SODIUM CHLORIDE 0.9% FLUSH 10 ML FLUSH IV FLUSH SCH ×2 (09:31→19:46)
--- NOTE | 2016-10-27 09:44 | PD.ORT.PN ---
Subjective Subjective Remarks POD 2 s/p IMN right intertroch hip fx doing well. reports pain but controlled. out of bed with therapy yesterday Objective Vitals Vital Signs Date Time Temp Pulse Resp B/P Pulse Ox O2 Delivery O2 Flow Rate FiO2 10/27/16 08:00 97.6 73 20 138/65 96 10/27/16 06:54 18 10/27/16 04:06 98.5 79 18 140/67 95 10/27/16 02:09 Room Air 10/27/16 00:06 98.3 74 18 142/68 96 10/26/16 20:06 98.3 75 18 115/56 96 10/26/16 19:45 68 10/26/16 15:42 96.5 80 19 116/59 94 10/26/16 14:22 95 21 10/26/16 11:37 96.4 79 19 123/66 93 I/O 10/26/16 10/26/16 10/26/16 10/27/16 10/27/16 10/27/16 07:00 15:00 23:00 07:00 15:00 23:00 Intake Total 970 ml 650 ml 360 ml 120 ml Output Total 600 ml 350 ml 300 ml 450 ml Balance 370 ml 300 ml 60 ml -330 ml Intake Oral 970 ml 650 ml 360 ml 120 ml Output Urine Total 600 ml 350 ml 300 ml 450 ml # Bowel Movements 0 0 0 0 Result Diagram: 10/27/16 0655 10/27/16 0655 Other Results Laboratory Tests Test 10/27/16 06:53 Prothrombin Time 11.8 SEC (9.8-11.6) Prothromb Time International 1.1 RATIO Ratio Objective Remarks RLE: dressings clean and dry. intact. NVI Assessment & Plan Assessment and Plan 1) Right Intertroch Hip Fx s/p IMN - POD 2 -50%WB RLE./ plan for 50%WB x 3 weeks then progressing to WBAT -daily dressing changes -DVT prophylaxis with lovenox and DC with Xarelto -pain control with norco -CM for rehab placement -plan for DC to rehab today -ortho cleared for DC to rehab -f/u with [facility] or [facility] in 2 weeks Deuce Humphries Oct 27, 2016 09:44
[2016-10-27] MEDS ORDERED: XARE20TA PO ×2 (11:04→12:43)
[2016-10-27] MEDS ORDERED: DOCU100C PO (11:05)
[2016-10-27] MEDS ORDERED: XARE15TA PO (12:43)
--- NOTE | 2016-10-27 13:09 | HHI.DS ---
Discharge Summary Admission Date Oct 24, 2016 at 5:36 pm Discharge Date: Oct 27, 2016 Admitting Diagnosis hip fracture (1) Closed intertrochanteric fracture of right femur ICD Code: S72.141A Diagnosis: Principal (2) DM (diabetes mellitus) ICD Code: E11.9 Diagnosis: Principal (3) Hypertension ICD Code: I10 Diagnosis: Principal (4) Coronary artery disease ICD Code: I25.10 Diagnosis: Principal (5) Systolic CHF ICD Code: I50.20 Diagnosis: Principal Procedures Right hip reduction and intramedullary nail fixation Brief History - From Admission 75-year-old female with past medical history significant for hypertension, hyperlipidemia, CHF and diabetes who takes warfarin for a supposedly clot IN her heart here status post fall grocery store now with complaints of right hip and buttocks pain. Patient says she was getting ready to step up a curb, instead of looking where she was walking she was looking straight ahead at her car. She lost balance and fell down to her right buttocks and hip. She tells me that her cell phone with her pocket and she thinks that may have caused her to have some muscle strain. She was afraid to get up and try to walk, because it seemed to be a little bit more painful with trying to bear weight. Paramedics were called and brought her to the emergency department for further evaluation. This present time she is telling me she has 2/10 pain in her right hip at rest, however when she tries to ambulate she says the pain intensifies to 8/10. She denies any head injury or loss of consciousness. She has no other complaints of pain. Her blood pressures elevated today, and she tells me that she did not take her medications at home. She denies any nausea, vomiting , diaphoresis, shortness breath, chest pain, or syncope. CBC/BMP: 10/27/16 0655 10/27/16 0655 Significant Findings Laboratory Tests Test 10/24/16 10/24/16 10/25/16 10/25/16 15:40 23:40 08:50 18:28 White Blood Count 17.3 TH/MM3 16.4 TH/MM3 (4.0-11.0) (4.0-11.0) Neutrophils (%) (Auto) 88.4 % 81.5 % (16.0-70.0) (16.0-70.0) Lymphocytes (%) (Auto) 4.9 % 6.9 % (9.0-44.0) (9.0-44.0) Neutrophils # (Auto) 15.3 TH/MM3 13.3 TH/MM3 (1.8-7.7) (1.8-7.7) Lymphocytes # (Auto) 0.9 TH/MM3 (1.0-4.8) Prothrombin Time 21.5 SEC 17.8 SEC (9.8-11.6) (9.8-11.6) Activated Partial 34.4 SEC Thromboplast Time (24.3-30.1) Blood Urea Nitrogen 35 MG/DL (7-18) 36 MG/DL (7-18) Creatinine 1.33 MG/DL 1.57 MG/DL (0.50-1.00) (0.50-1.00) Estimat Glomerular Filtration 39 ML/MIN (>89) 32 ML/MIN (>89) Rate Random Glucose 207 MG/DL 172 MG/DL (74-106) (74-106) Calcium Level 10.3 MG/DL (8.5-10.1) Urine Turbidity HAZY (CLEAR) Urine Occult Blood TRACE (NEG) Urine Leukocyte Esterase LARGE (NEG) Urine WBC 40 /hpf (0-5) Urine Bacteria MOD /hpf (NONE) Red Blood Count 3.64 MIL/MM3 (4.00-5.30) Hemoglobin 11.2 GM/DL (11.6-15.3) Hematocrit 33.1 % (35.0-46.0) Monocytes # (Auto) 1.1 TH/MM3 (0-0.9) Eosinophils # (Auto) 0.5 TH/MM3 (0-0.4) Basophils # (Auto) 0.3 TH/MM3 (0-0.2) Neutrophils % (Manual) 80 % (16-70) Lymphocytes % 8 % (9-44) Neutrophils # (Manual) 13.8 TH/MM3 (1.8-7.7) Hemoglobin A1c 6.5 % (4.3-6.0) Total Creatine Kinase 334 U/L (26-192) Creatine Kinase MB 5.0 NG/ML (0.5-3.6) Albumin 3.1 GM/DL (3.4-5.0) Test 10/26/16 10/27/16 10/27/16 06:22 06:53 06:55 Hemoglobin 10.7 GM/DL 9.5 GM/DL (11.6-15.3) (11.6-15.3) Hematocrit 31.6 % 27.6 % (35.0-46.0) (35.0-46.0) Prothrombin Time 13.4 SEC 11.8 SEC (9.8-11.6) (9.8-11.6) Red Blood Count 3.00 MIL/MM3 (4.00-5.30) Sodium Level 135 MEQ/L (136-145) Anion Gap 4 MEQ/L (5-15) Blood Urea Nitrogen 31 MG/DL (7-18) Creatinine 1.04 MG/DL (0.50-1.00) Estimat Glomerular Filtration 52 ML/MIN (>89) Rate Random Glucose 131 MG/DL (74-106) PE at Discharge GENERAL: Well-developed, well-nourished in no distress SKIN: Warm and dry. CARDIOVASCULAR: Regular rate and rhythm. RESPIRATORY: No accessory muscle use. Clear to auscultation. Breath sounds equal bilaterally. GASTROINTESTINAL: Abdomen soft, non-tender, nondistended. MUSCULOSKELETAL: Extremities without clubbing, cyanosis, or edema. No obvious deformities. NEUROLOGICAL: Awake and alert. No obvious cranial nerve deficits. Motor grossly within normal limits. Five out of 5 muscle strength in the arms and legs. Normal speech. Hospital Course Mrs. Vizcaino is a 75-year-old female. She was admitted secondary to hip fracture. She had surgical repair of this and has been doing well with physical therapy. She has good pain control. Renal function had transiently worsened, which is suspected to be secondary to acute bone injury and associated inflammation and potentially slight rhabdomyolysis. This improved and has returned to normal levels. 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 At discharge treatment will be transitioned to Xarelto. She is medically stable for discharge to a [facility] facility today to continue physical therapy. Pt Condition on Discharge: Stable Discharge Disposition: Discharge to SNF Discharge Time: > 30 minutes Discharge Instructions DIET: Follow Instructions for: As Tolerated, No Restrictions Activities you can perform: See Additionl Instruction Other Activity Instructions: Follow orthopedic recommendations Follow up Referrals: Orthopedics - 2 Weeks @ [facility] with Geoffrey Bae MD PCP Follow-up - 2-3 Days New Medications: Docusate Sodium (Docusate Sodium) 100 Mg Cap 100 MG PO BID PRN CONSTIPATION #60 Ref 0 CAP Hydrocodone-Acetaminophen ([place]) 7.5-325 mg Tab 1 TAB PO Q4H PRN PAIN #60 Ref 0 TAB Rivaroxaban (Xarelto) 20 Mg Tab 20 MG PO DAILY Blood Clot Prevention #30 Ref 0 TAB Rivaroxaban (Xarelto) 15 Mg Tab 15 MG PO Q12HR Blood Clot Prevention #42 Ref 0 TAB Continued Medications: Atorvastatin (Atorvastatin) 10 Mg Tab 10 MG PO HS Cholesterol Management #30 Ref 0 TAB Carvedilol 12.5 mg (Coreg 12.5 mg) 12.5 Mg Tab 12.5 MG PO Q12 Blood Pressure Management Days 30 TAB Insulin Aspart (Novolog) 100 Units/Ml Inj 5 UNITS SQ TIDAC Blood Sugar Management Days 30 INJ Insulin Detemir (Levemir Insulin) 100 Units/Ml Inj 25 UNITS SQ HS #10 ML Lisinopril 10 mg (Prinivil 10 mg) 10 Mg Tab 40 MG PO DAILY HTN Days 30 TAB Losartan Potassium (Cozaar) 50 Mg Tab 50 MG PO DAILY TAB Discontinued Medications: Aspirin (Aspirin EC 81 mg) 81 Mg Tab 81 MG PO DAILY CAD Days 30 TAB Aspirin (Aspirin) 81 Mg Chew 81 MG CHEW DAILY Ref 0 TAB Atorvastatin (Lipitor 10 mg tab) 10 Mg Tab 10 MG PO HS CAD Days 30 TAB Carvedilol (Carvedilol) 12.5 Mg Tab 12.5 MG PO BID #60 Ref 0 TAB Furosemide (Furosemide) 40 Mg Tab 40 MG PO DAILY TAB Furosemide (Furosemide) 40 Mg Tab 40 MG PO DAILY #30 Ref 0 TAB Glipizide-Metformin (Glipizide-Metformin) 2-250 Mg Tab Lisinopril (Lisinopril) 40 Mg Tab 40 MG PO DAILY Blood Pressure Management #30 Ref 0 TAB Losartan (Losartan) 50 Mg Tab 50 MG PO DAILY Blood Pressure Management #30 Ref 0 TAB Leo Danielle MD Oct 27, 2016 1:09 pm
[2016-10-27] MEDS ORDERED: WARFARIN SOD 7.5 MG TAB PO SCH (16:00)
[2016-10-27] MEDS: WARFARIN SOD 5 MG TAB PO SCH (17:46)
[2016-10-27] MEDS: ATORVASTATIN 10 MG TAB PO SCH (19:55)
[2016-10-27] MEDS: INSULIN DETEMIR 100 UNITS/ML VIAL SQ SCH (19:57)
== END 2016-10-27 20:52 | DRG 481 ==
LOC: NEPD 13:20 → NEDA 17:36 → N06B 21:32
PROVIDERS: ADMIT Hospitalist; ATTEND Hospitalist
PROC: 0QS606Z Reposition Right Upper Femur with Intramedullary Internal Fixation Device, Open Approach (ICD-10-PCS; principal; 2016-10-25 07:18)
DX: S72.141A Displaced intertrochanteric fracture of right femur, initial encounter for closed fracture (principal); I13.0 Hypertensive heart and chronic kidney disease with heart failure and stage 1 through stage 4 chronic kidney disease, or unspecified chronic kidney disease; E11.22 Type 2 diabetes mellitus with diabetic chronic kidney disease; I50.22 Chronic systolic (congestive) heart failure; E11.65 Type 2 diabetes mellitus with hyperglycemia; N18.3 Chronic kidney disease, stage 3 (moderate); I25.10 Atherosclerotic heart disease of native coronary artery without angina pectoris; I51.3 Intracardiac thrombosis, not elsewhere classified; M81.0 Age-related osteoporosis without current pathological fracture; E78.5 Hyperlipidemia, unspecified; W10.1XXA Fall (on)(from) sidewalk curb, initial encounter; Z79.01 Long term (current) use of anticoagulants; Y92.512 Supermarket, store or market as the place of occurrence of the external cause; I25.2 Old myocardial infarction; Z79.84 Long term (current) use of oral hypoglycemic drugs; Z79.4 Long term (current) use of insulin
CPT/HCPCS: 71010; 72192; 73502; 73552; 76000; 80048; 80053; 81001; 82306; 82550; 82552; 82948; 83036; 83735; 84100; 84439; 84443; 85007; 85014; 85018; 85025; 85027; 85610; 85730; 86850; 86900; 86901; 87077; 87086; 87186; 93005; 96372; C1713; J0131; J0360; J0690; J1580; J1815; J2250; J2270; J2405; J3010; J3370; J3430; J7030; J7050